=== PATIENT | female | born 1960 | race Caucasian/White ===

== ENCOUNTER 2017-04-23 01:37 | Inpatient (IN) | payer OTHER ==
[2017-04-23] VITALS (13 sets, daily range): BP systolic 106–142; BP diastolic 45–110; PULSE 97–113; RESP 17–27; TEMP 99; Ht 160 cm; Wt 69.5 kg
[~2017-04-23] VITALS: Ht 160 cm; Wt 69.5 kg
--- NOTE | 2017-04-23 02:02 | ERA ---
ER Documentation Chief Complaint Date/Time DATE: 04/23/17 TIME: 02:02 Chief Complaint cough x 4 days, sob today, sore throat x 1 day weakness today HPI The patient is a 56-year-old female, resenting to the ER because of cough for the last 4 days, sore throat and dyspnea for 1 day. She complains of generalized weakness, denies syncope, near syncope, neck pain, chest pain, abdominal pain, nausea, vomiting, dysuria, diarrhea. She does not smoke nor drink Past medical history: Diabetes mellitus Past surgical history: Cholecystectomy ROS All systems reviewed and are negative except as per history of present illness. Allergies Allergies: Coded Allergies: No Known Allergy (Unverified , 04/23/17) Physical Exam Vitals Vital Signs Date Time Temp Pulse Resp B/P Pulse Ox O2 Delivery O2 Flow Rate FiO2 04/23/17 01:41 97.4 101 20 139/77 100 Physical Exam Const: No acute distress. Dehydrated Head: Atraumatic. Eyes: Normal Conjunctiva. ENT: Normal External Ears, Nose and Mouth. Neck: Full range of motion. No meningismus. Resp: Clear to auscultation bilaterally. Cardio: Regular tachycardic Abd: Soft, non distended, normal bowel sounds, non tender. Skin: No petechiae or rashes. Back: No midline or flank tenderness. Ext: No cyanosis, or edema. Neur: Awake and alert. No focal deficit Psych: Normal Mood and Affect. Result Diagram: 04/23/17 0200 04/23/17 0200 Results 24 hrs Laboratory Tests Test 04/23/17 01:59 04/23/17 02:00 04/23/17 02:36 04/23/17 02:40 Bedside Glucose 288mg/dL White Blood Count 22.810^3/ul Red Blood Count 5.0810^6/ul Hemoglobin 15.7g/dl Hematocrit 49.8% Mean Corpuscular Volume 98.0fl Mean Corpuscular Hemoglobin 30.9pg Mean Corpuscular Hemoglobin Concent 31.5g/dl Red Cell Distribution Width 13.0% Platelet Count 94453^3/UL Mean Platelet Volume 11.4fl Neutrophils % 72.0% Band Neutrophils % 2.0% Lymphocytes % 13.0% Monocytes % 11.0% Myelocytes % 2.0% Neutrophils # 16.410^3/ul Lymphocytes # 3.010^3/ul Monocytes # 2.510^3/ul Myelocytes # 0.5 Differential Comment MANUAL DIFF Platelet Estimate PLT APPEAR ADEQUATE Anisocytosis 1+ Ovalocytes FEW Sodium Level 145mmol/L Potassium Level 5.0mmol/L Chloride Level 112mmol/L Carbon Dioxide Level < 5mmol/L Anion Gap 33 Blood Urea Nitrogen 9mg/dl Creatinine 0.90mg/dl Glucose Level 333mg/dl Calcium Level 8.9mg/dl Phosphorus Level 6.0mg/dl Magnesium Level 2.6mg/dl Lactic Acid Level 2.5mmol/L Urine Color LT. YELLOW Urine Clarity CLEAR Urine pH 5.5 Urine Specific Bryant >=1.030 Urine Ketones 3+ Urine Nitrite NEGATIVE Urine Bilirubin NEGATIVE Urine Urobilinogen 0.2 E.U./dL Urine Leukocyte Esterase NEGATIVE Urine Microscopic RBC Pending Urine Microscopic WBC Pending Urine Hemoglobin 3+ Urine Glucose 0.5%% Urine Total Protein 1+ Test 04/23/17 02:48 04/23/17 02:50 04/23/17 03:43 04/23/17 03:50 Bedside Urine pH (LAB) 5.5 Bedside Urine Protein (LAB) 2+ Bedside Urine Glucose (UA) 0.50% Bedside Urine Ketones (LAB) 3+ Bedside Urine Blood 3+ Bedside Urine Nitrite (LAB) Negative Bedside Urine Leukocyte Esterase (L Negative Bedside Glucose 289mg/dL 258mg/dL Stool Occult Blood NEGATIVE Current Medications Medications (Trade) Dose Ordered Sig/Andrei Route PRN Reason Start Time Stop Time Status Last Admin Dose Admin Sodium Chloride (NS) 1,000 ml @ 1,000 mls/hr Q1H STAT IV 04/23/17 02:06 04/23/17 03:05 DC 04/23/17 02:12 Ondansetron HCl 4 mg 4 mg ONCE STAT IV 04/23/17 02:06 04/23/17 02:08 DC 04/23/17 02:14 Sodium Chloride 1,000 ml @ 1,000 mls/hr Q1H ONCE IV 04/23/17 02:30 04/23/17 03:29 DC 04/23/17 03:08 Insulin Human Regular/Sodium Chloride (Novolin-R/NS) 100 ml @ 0 mls/hr DKA PROTOCOL IV 04/23/17 02:30 04/23/17 02:54 Diagnostic Test (Pha) 1 ea 1 ea Q1H XX 04/23/17 02:30 04/23/17 03:50 Sodium Chloride 1,000 ml @ 1,000 mls/hr Q1H ONCE IV 04/23/17 04:00 04/23/17 04:59 Cancel Vancomycin HCl 250 ml @ 125 mls/hr ONCE IVPB 04/23/17 04:00 04/23/17 05:59 Piperacillin Sod/ Tazobactam Sod 100 ml @ 200 mls/hr ONCE ONCE IVPB 04/23/17 04:00 04/23/17 04:29 04/23/17 04:16 Dextrose/Sodium Chloride 1,000 ml @ 150 mls/hr Q6H40M ONCE IV 04/23/17 04:00 04/23/17 10:39 04/23/17 04:16 Sodium Chloride (NS) 2,150 ml @ 2,150 mls/hr BOLUS X1 ONCE IV 04/23/17 04:00 04/23/17 04:59 Procedures/[place] [id number] Radiology Main Line: [phone] DIAGNOSTIC IMAGING REPORT Patient: JENNIE DORSEY : 1960 Age: 56 Sex: F MR #: [id number] DOS: 04/23/17 0206 Ordering MD: MARIAN FORD MD Location: E/R Room/Bed: PROCEDURE: XR Chest. CLINICAL INDICATION: Chest pain and hyperglycemia TECHNIQUE: Portable single view of the chest COMPARISON: None. FINDINGS: Top normal heart size. Shallow lung inflation with slight bibasilar crowding. No definite acute infiltrate, pleural effusion, or overt congestive heart failure. No definite acute bony abnormality. IMPRESSION: Slight bibasilar crowding. No definite acute infiltrate. RPTAT: HLBE Physician Ziggy Date Time Electronically viewed and signed by Luba Bernstein Physician on 04/23/2017 03 :17 LE/ CC: MARIAN FORD MD EKG: Read by emergency physician Rate/Rhythm: Sinus tachycardia 105 beats/min QRS, ST, T-waves: No ST elevation, no T inversion, LAD Impression: Abnormal EKG MEDICAL MAKING DECISION: The patient is a 56-year-old female, presenting with acute DKA, acute severe sepsis, acute dehydration, acute hyperphosphatemia, acute hypermagnesemia. She was treated with normal saline 30 mL/kg IV, empirically with vancomycin IV, Zosyn IV for acute severe sepsis. She was treated with insulin drip 0.1 U/kg/h, Accu-Cheks will be done every 1 hour After receiving normal saline 30 mL/kg IV, Accu-Chek was 258, her fluid then changed to D5 half-normal saline at 150 cc/h Admit MDM: Patient's infectious symptoms have not stabilized and the patient is at risk of rapid decompensation. The patient will be admitted for careful hydration, antibiotic therapy, and infectious source control. Severe Sepsis criteria: Infectious source: Unknown End organ damage indicated by: Lactate > 2.0 mmol/L Sepsis Management: Time of recognition of severe sepsis/septic shock:3 AM Within 3 hours of recognition: Blood cultures x 2 before broad-spectrum antibiotics: Yes 30 ml/kg NS bolus completed Initial lactate 2.5 Repeat lactate pending Critical Care: Critical care time 35 minutes Emergent fluid management while maintaining close respiratory support. Provision of immediate and broad-spectrum antibiotic therapy. Simultaneous assessment for possible sources in order to direct targeted therapy. Consideration for invasive and chemical support to prevent cardiopulmonary collapse. Septic Shock Assessment: Any lactic acid > 4.0 no Persistent hypotension (SBP < 90 or 40 mmHg drop, MAP < 65) despite 30 mL/kg IV fluid bolusno Departure Diagnosis: Primary Impression: DKA (diabetic ketoacidoses) Additional Impressions: Severe sepsis Hyperphosphatemia Hypermagnesemia Condition: Critical Comments I discussed the findings with the patient. I discussed the patient with the on- call hospitalist Dr. Lopez at 4 AM who was made aware of the lab, the treatment, the patient condition. The patient is admitted to ICU The patient's blood pressure was elevated (>120/80) but appears stable without evidence of hypertension emergency or urgency. The patient was counseled about the risks of hypertension and urged to pursue outpatient monitoring and therapy within a week with their primary care physician. MARIAN FORD MD Apr 23, 2017 02:02
[2017-04-23] MEDS ORDERED: SOD CHLORIDE 0.9% 1,000 ML IV STA (02:06)
[2017-04-23] MEDS ORDERED: ONDANSETRON 4 MG INJ IV STA (02:06)
[2017-04-23] MEDS ORDERED: SOD CHLORIDE 0.9% 1,000 ML IV ONE ×2 (02:30→04:00)
[2017-04-23] MEDS ORDERED: INSULIN HUMAN REGULAR 100 UNIT in SOD CHLORIDE 0.9% 99 ML IV SCH ×2 (02:30→05:00)
[2017-04-23 02:36] LABS: ADD SCAN DIFF NO
[2017-04-23 02:38] LABS: ABNORMAL IP MESSAGE 1; HEMATOCRIT 49.8 % (37.0-47.0); HEMOGLOBIN 15.7 g/dl (12.0-16.0); MEAN CORPUSCULAR HEMOGLOBIN 30.9 pg (29.0-33.0); MEAN CORPUSCULAR HGB CONC 31.5 g/dl (32.0-37.0); MEAN PLATELET VOLUME 11.4 fl (7.4-10.4); PLATELET COUNT 510 10^3/UL (140-415); RED BLOOD COUNT 5.08 10^6/ul (4.20-5.40); WHITE BLOOD COUNT 22.8 10^3/ul (4.8-10.8)
[2017-04-23 02:46] LABS: URINE BLOOD (Dip) POC 3+ (NEGATIVE)
[2017-04-23 03:01] LABS: BLOOD UREA NITROGEN 9 mg/dl (7-20); CALCIUM 8.9 mg/dl (8.4-10.2); GLUCOSE 333 mg/dl (70-220); MAGNESIUM 2.6 mg/dl (1.7-2.5); SODIUM 145 mmol/L (135-144)
[2017-04-23] MEDS: ACCU-CHEK XX SCH ×15 (03:12→23:30)
[2017-04-23 03:16] LABS: ANION GAP 33 (8-16); CHLORIDE 112 mmol/L (97-110)
--- NOTE | 2017-04-23 03:17 | RADRPT ---
PROCEDURE: XR Chest. CLINICAL INDICATION: Chest pain and hyperglycemia TECHNIQUE: Portable single view of the chest COMPARISON: None. FINDINGS: Top normal heart size. Shallow lung inflation with slight bibasilar crowding. No definite acute in filtrate, pleural effusion, or overt congestive heart failure. No definite acute bony abnormality. IMPRESSION: Slight bibasilar crowding. No definite acute infiltrate. RPTAT: HLBE Luba Bernstein Physician Date Time Electronically viewed and signed by Luba Bernstein, Physician on 04/23/2017 03:17 LE/
[2017-04-23 03:18] LABS: CARBON DIOXIDE < 5 mmol/L (21-31)
[2017-04-23 03:43] LABS: ADD UMIC YES; URINE BILIRUBIN (Dip) NEGATIVE (NEGATIVE); URINE BLOOD (Dip) 3+ (NEGATIVE); URINE COLOR LT. YELLOW (YELLOW); URINE KETONES (Dip) 3+ (NEGATIVE); URINE LEUKOCYTE ESTERASE (Dip) NEGATIVE (NEGATIVE); URINE NITRITE (Dip) NEGATIVE (NEGATIVE); URINE TOTAL PROTEIN (Dip) 1+ (NEGATIVE); URINE UROBILINOGEN (Dip) 0.2 E.U./dL (0.1-1.0)
[2017-04-23] MEDS ORDERED: DEXTROSE 5%-0.45% NACL 1,000 ML IV ONE (04:00)
[2017-04-23] MEDS ORDERED: SOD CHLORIDE 0.9% IV ONE (04:00)
[2017-04-23] MEDS ORDERED: PIPER-TAZO 3.375 GM IV (PMX) 100 ML IVPB ONE (04:00)
[2017-04-23] MEDS ORDERED: VANCOMYCIN 1 GM (PMX) 250 ML IVPB SCH (04:00)
[2017-04-23 04:06] LABS: MONOCYTE # 2.5 10^3/ul (0.3-0.9); MYELOCYTES # 0.5; NEUTROPHIL # 16.4 10^3/ul (1.6-7.5)
[2017-04-23 04:08] LABS: ANISOCYTOSIS 1+
[2017-04-23 04:09] LABS: BURR CELLS FEW; OVALOCYTES FEW
[2017-04-23 04:11] LABS: PLATELET ESTIMATE PLT APPEAR ADEQUATE
[2017-04-23 04:31] LABS: BACTERIA,URINE FEW; SQUAMOUS EPITHELIAL CELL,UR FEW
[2017-04-23] MEDS ORDERED: SOD CHLORIDE 0.9% 1,000 ML IV SCH (04:32)
[2017-04-23] MEDS ORDERED: EMPA25TA PO (04:44)
[2017-04-23] MEDS ORDERED: MTF1000T PO (04:44)
[2017-04-23] MEDS ORDERED: BENA10TA48 PO (04:44)
[2017-04-23] MEDS ORDERED: LORAZEPAM 2 MG INJ IV PRN (05:00)
[2017-04-23] MEDS ORDERED: ALBUTEROL/IPRATROPIUM (NEB) 3 ML AMP NEB PRN (05:00)
[2017-04-23] MEDS ORDERED: morphine 2 MG INJ IV PRN (05:00)
[2017-04-23] MEDS ORDERED: ONDANSETRON 4 MG INJ IV PRN (05:00)
[2017-04-23] MEDS ORDERED: DEXTROSE 50% 50 ML SYRINGE IV PRN ×6 (05:00→17:00)
[2017-04-23] MEDS ORDERED: LACTATED RINGER'S 1,000 ML IV SCH (05:32)
--- NOTE | 2017-04-23 06:26 | HP ---
DATE OF ADMISSION: 04/23/2017 TIME SEEN: 4 a.m. CHIEF COMPLAINT: Shortness of breath, cough and generalized weakness. HISTORY OF PRESENT ILLNESS: The patient is a 56-year-old female with history of diabetes who presen miguel to the emergency department with the above stated chief complaint. She state the cough which stewart s been dry for the most part that started about 5 days ago and has been associated with shortness of breath. She also complains of sore throat as well as generalized weakness and fruity odor/taste in her mouth. When she presented to the ER, blood pressure was 139/77, heart rate 101, respiratory rate 20, temper ature 97.4, oxygen saturation 100% on room air. Laboratory value shows WBC of almost 23,000, platel et count 510, sodium 145, chloride 112. She is severely acidotic with a bicarb of less than 5 with initial point of care glucose of 333 on the BMP. Anion gap is 33 and urine shows 3+ ketones. She w as started on an insulin drip with the DKA protocol and IV fluid and currently awaiting admission to ICU. Denies fever, chills, chest pain. REVIEW OF SYSTEMS: A 12-point review of systems are negative except as in the HPI. PAST MEDICAL HISTORY: As per HPI. SOCIAL HISTORY: Denied a history of tobacco, alcohol or illicit drug use. ALLERGIES: NO KNOWN DRUG ALLERGIES. HOME MEDICATIONS: See reconciliation of the medications. PHYSICAL EXAMINATION: VITAL SIGNS: As mentioned in the HPI. GENERAL: The patient lying on the gurney looks sleepy but arousable. No acute distress. HEENT: No obvious head deformity with ____, atraumatic. Extraocular movements intact. Pupils are reactive to light. No scleral icterus. CARDIOVASCULAR: Tachycardic with regular rhythm. LUNGS: Clear. ABDOMEN: Soft, nondistended. No grimaces noted on palpation. There are positive bowel signs. LOWER EXTREMITIES: No edema. LABORATORY DATA: Pertinent positives as mentioned in the HPI. IMAGING: Chest x-ray shows slightly bibasilar crowding with no definite acute infiltrate. IMPRESSION 1. Diabetic ketoacidosis. 2. Severe anion gap metabolic acidosis, probably secondary to above. 3. Sepsis, as evidenced by leukocytosis and tachycardia, secondary to suspected URI. 4. Mild hypernatremia. PLAN: 1. Admit to ICU. 2. Continue insulin with DKA protocol. 3. Continue IV fluids. 4. Correct electrolytes as needed. 5. ABG actually is now available and it shows the patient has severe acidosis with a pH of 6.99, pC O2 of 8.8, pO2 of 133, bicarb of 2.1 with base excess -27 and I believe that this was done on room a ir. I will repeat her ABG at a later time. 6. We will place an endocrinology consult. 7. She will be placed on antibiotic and will follow up on the blood culture and urine culture resul ts. 8. The patient presented with sign of sepsis with severe leukocytosis and tachycardia and has URI s ymptoms with a cough, sore throat. If the patient continues to have sore throat and no other identi fied source of infection is found, then we might need to do a throat swab. 9. Will correlate the as needed. 10. Further workup ____ clinical course. 11. Total critical time is about 40 minutes. Dictated By: KENDRICK MURILLO/PINKY Conf#: [id number] DID#: [id number]
[2017-04-23] MEDS ORDERED: NS + KCL 20 MEQ 1,000 ML IV SCH (06:32)
[2017-04-23 06:57] LABS: BLOOD UREA NITROGEN 9 mg/dl (7-20); CALCIUM 7.1 mg/dl (8.4-10.2); CHLORIDE 118 mmol/L (97-110); CREATININE 0.69 mg/dl (0.44-1.00); PHOSPHORUS 3.4 mg/dl (2.5-4.9); POTASSIUM 3.7 mmol/L (3.5-5.1); SODIUM 145 mmol/L (135-144)
[2017-04-23 07:10] LABS: ANION GAP 26 (8-16)
[2017-04-23 07:11] LABS: CARBON DIOXIDE < 5 mmol/L (21-31)
[2017-04-23 07:12] LABS: GLUCOSE 422 mg/dl (70-220)
[2017-04-23 08:55] LABS: AADO2 Arterial 5.6 mmHg (7.0-24.0); Allen Test ACCEPTAB; Arterial Base Excess -27.2 mmol/L (-3.0-3); Arterial COHb 0.3 % (0.0-3.0); Arterial Fraction of Oxyhgb 96.5 % (93.0-99.0); Arterial HCO3 2.1 mmol/L (22.0-26.0); Arterial MetHb 0.6 % (0.0-1.5); Arterial Total Hemglobin 16.2 g/dl (12.0-18.0); MODE ROOM AIR
[2017-04-23] MEDS: SOD CHLORIDE 0.9% 1,000 ML IV SCH ×2 (11:12→12:35)
[2017-04-23] MEDS: CEFEPIME 1GM/50 ML (PMX) 50 ML IVPB SCH ×2 (11:18→21:05)
[2017-04-23 13:02] LABS: CALCIUM 7.2 mg/dl (8.4-10.2); CREATININE 0.55 mg/dl (0.44-1.00); POTASSIUM 4.4 mmol/L (3.5-5.1)
[2017-04-23] MEDS ORDERED: GLUCAGON 1 MG INJ IM PRN (14:00)
[2017-04-23] MEDS ORDERED: GLUCOSE GEL 15 GRAM TUBE PO PRN ×2 (14:00)
[2017-04-23] MEDS ORDERED: GLUCOSE GEL 15 GRAM TUBE BUCCAL PRN (14:00)
[2017-04-23 16:25] LABS: CALCIUM 7.6 mg/dl (8.4-10.2); CREATININE 0.61 mg/dl (0.44-1.00); POTASSIUM 4.1 mmol/L (3.5-5.1)
[2017-04-23] MEDS: DEXTROSE 5%-0.9% NACL 1,000 ML IV SCH (17:29)
[2017-04-23] MEDS: INSULIN HUMAN REGULAR 100 UNIT in SOD CHLORIDE 0.9% 99 ML IV SCH ×2 (17:35→22:09)
[2017-04-23] MEDS ORDERED: INSULIN ASPART [NOVOLOG] 3 ML PEN SC SCH ×2 (17:35)
--- NOTE | 2017-04-23 17:41 | CONS ---
DATE OF ADMISSION: 04/23/2017 DATE OF CONSULTATION: 04/23/2017 TYPE OF CONSULTATION: Infectious Disease. REASON FOR CONSULTATION: Antibiotic management. HISTORY OF PRESENT ILLNESS: Madeline Carmona is a 56-year-old female who was brought in with shortness of breath, cough and generalized weakness. Her past problems include adult-onset diabetes mellitus. She presented to the emergency room with shortness of breath, cough and generalized weakness. Her throat has been dry for about 5 days associated with this shortness of breath. She also complains of a sore throat. In the emergency room, her temperature was normal. She had 100% oxygenation on r oom air. White count was 22.8, H and H of 15.7 and 49.8, platelet count of 510,000. BUN and creat inine were 9/0.55 with an anion gap of 14, carbon dioxide was 9, so she had a significant metabolic acidosis. Urine showed 3+ ketones, 3+ urine blood, negative nitrite and leukocyte esterase. A chest x-ray showed slight bibasilar crowding, no definite acute infiltrate. The patient was start ed on insulin and also was started on cefepime. She received a dose of vancomycin and Zosyn to star t with, now is on cefepime. PAST MEDICAL HISTORY: Operations as outlined. FAMILY HISTORY: Noncontributory. SOCIAL HISTORY: She does not smoke, drink or abuse drugs. ALLERGIES: NONE TO PENICILLIN, SULFA OR FOODS. MEDICATIONS: Per chart. REVIEW OF SYSTEMS: As per HPI. PHYSICAL EXAMINATION: GENERAL: The patient is a well-developed, well-nourished female who is sleepy, but arousable, in no acute distress. Family is by her bedside. VITAL SIGNS: Stable. She is afebrile. SKIN: Without generalized rash. HEENT: Within normal limits. NECK: Supple. LYMPH NODES: None palpable. CHEST: Decreased breath sounds at the bases. HEART: Without murmur or gallop. ABDOMEN: Soft, nontender, without organosplenomegaly or masses. EXTREMITIES: Without cyanosis, clubbing, or edema. RECTAL AND GENITAL: Deferred. NEUROLOGIC: No focal neurological abnormalities. IMPRESSION AND PLAN: The patient presents now with diabetic ketoacidosis with an elevated white cou nt of 22.8. Her blood gas showed severe acidosis with pH of 6.99, pCO2 of 8.8, pO2 of 133, base exc ess of -27. She will get an endocrinology consult. We will continue her on cefepime. We will awai t her blood culture results, which were ordered. I will dictate my findings to the hospitalist. Dictated By: JUDE EDMONDS MD, JD/PINKY Conf#: [id number] DID#: [id number]
[2017-04-23 17:48] LABS: PHOSPHORUS 2.8 mg/dl (2.5-4.9)
[2017-04-23] MEDS ORDERED: INSULIN GLARGINE [LANtus] 3 ML PEN SC SCH (20:00)
[2017-04-23 20:49] LABS: CREATININE 0.68 mg/dl (0.44-1.00); POTASSIUM 3.6 mmol/L (3.5-5.1)
[2017-04-24] VITALS (23 sets, daily range): BP systolic 96–128; BP diastolic 49–72; PULSE 87–101; RESP 16–28
[2017-04-24] MEDS: ACCU-CHEK XX SCH ×7 (00:17→20:48)
[2017-04-24] MEDS: DEXTROSE 5%-0.9% NACL 1,000 ML IV SCH ×2 (00:17→07:17)
[2017-04-24 01:20] LABS: CALCIUM 7.8 mg/dl (8.4-10.2); CREATININE 0.54 mg/dl (0.44-1.00)
[2017-04-24] MEDS ORDERED: ACCU-CHEK XX SCH ×2 (02:00→06:00)
[2017-04-24] MEDS: POTASSIUM CHLORIDE 50 ML IVPB PRN ×8 (03:01→13:32)
[2017-04-24] MEDS ORDERED: INSULIN HUMAN REGULAR 100 UNIT in SOD CHLORIDE 0.9% 99 ML IV SCH (06:00)
[2017-04-24 07:02] LABS: ADD SCAN DIFF NO
[2017-04-24 07:07] LABS: ABNORMAL IP MESSAGE 1; BASOPHILS % 0.1 % (0.0-2.0); EOSINOPHILS % 0.1 % (0.0-7.0); HEMATOCRIT 35.7 % (37.0-47.0); LYMPHOCYTES # 1.7 10^3/ul (0.8-2.9); LYMPHOCYTES % 11.1 % (15.0-51.0); MEAN CORPUSCULAR HEMOGLOBIN 30.8 pg (29.0-33.0); MEAN CORPUSCULAR HGB CONC 33.6 g/dl (32.0-37.0); MEAN CORPUSCULAR VOLUME 91.8 fl (82.0-101.0); MEAN PLATELET VOLUME 10.6 fl (7.4-10.4); MONOCYTE # 1.5 10^3/ul (0.3-0.9); MONOCYTES % 10.3 % (0.0-11.0); NEUTROPHIL # 11.5 10^3/ul (1.6-7.5); NEUTROPHILS % 77.1 % (39.0-77.0); PLATELET COUNT 339 10^3/UL (140-415); RED BLOOD COUNT 3.89 10^6/ul (4.20-5.40); RED CELL DISTRIBUTION WIDTH 13.5 % (11.5-14.5); WHITE BLOOD COUNT 14.9 10^3/ul (4.8-10.8)
[2017-04-24 07:34] LABS: ALBUMIN 3.3 g/dl (3.3-4.9); ALBUMIN/GLOBULIN RATIO 1.65; BILIRUBIN,INDIRECT 0.1 mg/dl (0-1.1); BILIRUBIN,TOTAL 0.1 mg/dl (0.2-1.3); CALCIUM 7.7 mg/dl (8.4-10.2); CREATININE 0.56 mg/dl (0.44-1.00); PHOSPHORUS 1.4 mg/dl (2.5-4.9); TOTAL PROTEIN 5.3 g/dl (6.1-8.1)
[2017-04-24] MEDS ORDERED: INSULIN GLARGINE [LANtus] 3 ML PEN SC SCH ×2 (08:00→20:00)
[2017-04-24] MEDS: CEFEPIME 1GM/50 ML (PMX) 50 ML IVPB SCH ×2 (08:57→20:51)
[2017-04-24 10:22] LABS: CALCIUM 7.9 mg/dl (8.4-10.2); CREATININE 0.5 mg/dl (0.44-1.00); POTASSIUM 3.5 mmol/L (3.5-5.1)
[2017-04-24] MEDS: ACETAMINOPHEN 650MG/20.3ML CUP PO PRN ×2 (11:11→19:02)
[2017-04-24] MEDS: SOD CHLORIDE 0.9% 1,000 ML IV SCH (13:29)
[2017-04-24 13:30] LABS: CALCIUM 7.9 mg/dl (8.4-10.2); CREATININE 0.49 mg/dl (0.44-1.00)
[2017-04-24] MEDS ORDERED: POTASSIUM CHLORIDE (SR) 20 MEQ TAB PO STA (14:21)
[2017-04-24 14:48] LABS: MICROALBUMIN 13.2 mg/dL
[2017-04-24] MEDS ORDERED: DEXTROSE 50% 50 ML SYRINGE IV PRN ×2 (15:00)
[2017-04-24] MEDS ORDERED: GLUCOSE GEL 15 GRAM TUBE BUCCAL PRN (15:00)
[2017-04-24] MEDS ORDERED: GLUCAGON 1 MG INJ IM PRN (15:00)
[2017-04-24] MEDS ORDERED: GLUCOSE GEL 15 GRAM TUBE PO PRN ×2 (15:00)
--- NOTE | 2017-04-24 15:01 | PN ---
DATE: 04/24/2017 SUBJECTIVE: No acute changes. The patient is alert, looks comfortable. Denies pain. She is still on insulin drip. No fevers. VITAL SIGNS: Temperature 98.2, pulse rate 93, respirations 18, blood pressure 111/49, saturation 99 % on room air. LABORATORY DATA: WBC 14.9, platelets 339, neutrophils 77.1, no bands. BUN 5, creatinine 0.49. MICROBIOLOGY: Blood cultures remain negative. Urine culture came back as contaminant. Urinalysis was negative for nitrite and leukocyte esterase. DIAGNOSTICS: Chest x-ray on admission revealed no definite acute infiltrate. PHYSICAL EXAMINATION: GENERAL: Well-developed, well-nourished middle-aged white woman who is alert, in no distress. HEENT: Head atraumatic, normocephalic. Sclerae anicteric. Buccal mucosa pink. NECK: Supple. CHEST: Rise symmetrical. Breath sounds clear. HEART: S1, S2. ABDOMEN: Soft, bowel sounds present. EXTREMITIES: Without cyanosis or edema. ASSESSMENT: 1. Systemic inflammatory response syndrome secondary to #2. 2. Diabetic ketoacidosis with severe metabolic acidosis. 3. Diabetes mellitus. PLAN: The patient remains stable, overall improving. Continue present care. Repeat urine culture. Repeat chest x-ray. Await for endocrinology evaluation. Dictated By: ADDISON SHANKAR FAMILY LAW SPECIALIST for JUDE WRIGHT/PINKY Conf#: [id number] DID#: [id number]
--- NOTE | 2017-04-24 15:26 | RADRPT ---
PROCEDURE: XR Chest. CLINICAL INDICATION: 56-year-old female with clinical suspicion of pneumonia. TECHNIQUE: Single frontal view of the chest was obtained. COMPARISON: Chest x-ray 04/23/2017. FINDINGS: The soft tissues are normal. There are degenerative osteophytes in the thoracic spine. The heart, cardiomediastinal silhouette and hilar structures are normal. The pulmonary vasculature is normal. There is a left-sided aorta. The lungs are clear. The costophrenic angles are normal. IMPRESSION: 1. Spondylosis of the thoracic spine with no evidence of active cardiopulmonary disease. 2. No acute infiltrate is identified. RPTAT:AAJJ Physician Kalyan Date Time Electronically viewed and signed by Physician Kalyan on 04/24/2017 15:25 PARISA/
--- NOTE | 2017-04-24 15:57 | PN ---
Date/Time of Note Date/Time of Note DATE: 04/24/17 TIME: 15:54 Assessment/Plan VTE Prophylaxis VTE Prophylaxis Intervention: SCD's Lines/Catheters IV [facility] Peripheral IV Urinary Cath still in place: No Assessment/Plan Chief Complaint/Hosp Course Assessment and plan 1. DKA. Fuel Cell Designer was consulted. Off of insulin drip at this time. Continue basal and pre-meal insulin. 2. Sirs likely secondary to DKA. Stable at present will monitor for now. 3. Diabetes. Continue on insulin regimen. Of note A1c was noted to be at 12.1. diabetes educator was consulted to follow patient 4. Hypokalemia. Will replete and check level in a.m. Disposition and plan: Appears to be improving at present. Continue his regimen. Monitor for blood glucose stability. Discussed plan of care with Dr. Coppola Problems: Subjective 24 Hr Interval Summary Free Text/Dictation Comfortable at present. No apparent distress. Exam/Review of Systems Vital Signs Vitals Vital Signs Date Time Temp Pulse Resp B/P Pulse Ox O2 Delivery O2 Flow Rate FiO2 04/24/17 15:00 88 23 124/60 100 Room Air 04/24/17 11:00 98.2 04/24/17 01:43 21 Intake and Output 04/23/17 04/23/17 04/24/17 15:00 23:00 07:00 Intake Total 1440 ml 1167 ml Output Total 2000 ml 1600 ml 750 ml Balance -2000 ml -160 ml 417 ml Exam Constitutional: alert, oriented Psych: nl mood/affect Head: normocephalic Eyes: nl conjunctiva Neck: supple, No jvd Respiratory: clear to auscultation, normal air movement Cardiovascular: regular rate and rhythm Gastrointestinal: non-tender, soft Musculoskeletal: nl extremities to inspection Neurological: MONUMENT STONECUTTER II-XII intact, nl mental status, nl speech Skin: nl turgor Results Result Diagram: 04/24/17 0555 04/24/17 1104 Results 24 hrs Laboratory Tests Test 04/23/17 15:55 04/23/17 16:00 04/23/17 17:26 04/23/17 18:04 Sodium Level 143 Potassium Level 4.1 Chloride Level 120 H Carbon Dioxide Level 7 *L Anion Gap 20 H Blood Urea Nitrogen 8 Creatinine 0.61 Glucose Level 210 Calcium Level 7.6 L Fasting Glucose 201 #H Phosphorus Level 2.8 Bedside Glucose 240 H 216 Test 04/23/17 19:00 04/23/17 19:58 04/23/17 20:15 04/23/17 21:08 Bedside Glucose 231 H 172 155 Sodium Level 144 Potassium Level 3.6 Chloride Level 121 H Carbon Dioxide Level 7 *L Anion Gap 20 H Blood Urea Nitrogen 8 Creatinine 0.68 Glucose Level 199 Calcium Level 8.0 L Test 04/23/17 22:03 04/23/17 23:10 04/23/17 23:28 04/24/17 00:10 Bedside Glucose 142 114 100 Sodium Level 140 Potassium Level 3.0 L Chloride Level 122 H Carbon Dioxide Level 10 L Anion Gap 11 # Blood Urea Nitrogen 8 Creatinine 0.54 Glucose Level 115 # Calcium Level 7.8 L Test 04/24/17 00:17 04/24/17 01:05 04/24/17 02:04 04/24/17 03:08 Bedside Glucose 106 119 129 165 Test 04/24/17 04:12 04/24/17 05:06 04/24/17 05:50 04/24/17 05:55 Bedside Glucose 131 156 Sodium Level 143 Potassium Level 3.0 L Chloride Level 122 H Carbon Dioxide Level 12 L Anion Gap 12 Blood Urea Nitrogen 7 Creatinine 0.56 Glucose Level 143 Calcium Level 7.7 L Phosphorus Level 1.4 #L Total Bilirubin 0.1 L Direct Bilirubin 0.00 Indirect Bilirubin 0.1 Aspartate Amino Transf (AST/SGOT) 11 L Alanine Aminotransferase (ALT/SGPT) 25 Alkaline Phosphatase 45 Total Protein 5.3 L Albumin 3.3 Globulin 2.00 Albumin/Globulin Ratio 1.65 White Blood Count 14.9 #H Red Blood Count 3.89 #L Hemoglobin 12.0 # Hematocrit 35.7 #L Mean Corpuscular Volume 91.8 Mean Corpuscular Hemoglobin 30.8 Mean Corpuscular Hemoglobin Concent 33.6 Red Cell Distribution Width 13.5 Platelet Count 339 # Mean Platelet Volume 10.6 H Neutrophils % 77.1 H Lymphocytes % 11.1 L Monocytes % 10.3 Eosinophils % 0.1 Basophils % 0.1 Nucleated Red Blood Cells % 0.0 Neutrophils # 11.5 H Lymphocytes # 1.7 Monocytes # 1.5 H Eosinophils # 0.0 Basophils # 0.0 Nucleated Red Blood Cells # 0.0 Test 04/24/17 06:03 04/24/17 07:17 04/24/17 07:51 04/24/17 08:53 Bedside Glucose 142 158 159 190 Test 04/24/17 09:18 04/24/17 09:54 04/24/17 11:04 04/24/17 11:06 Sodium Level 142 142 Potassium Level 3.5 3.0 L Chloride Level 120 H 121 H Carbon Dioxide Level 12 L 13 L Anion Gap 14 11 Blood Urea Nitrogen 6 L 5 L Creatinine 0.50 0.49 Glucose Level 173 152 Calcium Level 7.9 L 7.9 L Bedside Glucose 167 158 Test 04/24/17 12:17 04/24/17 13:19 Bedside Glucose 216 139 Medications Medications Current Medications Ondansetron HCl (Zofran Inj) 4 mg Q6H PRN IV NAUSEA AND/OR VOMITING; Start 04/23 at 05:00 Acetaminophen (Tylenol Liquid) 650 mg Q6H PRN PO PAIN LEVEL 1-3 OR FEVER Last administered on 04/24/17 11:11; Admin Dose 650 MG; Start 04/23/17 at 05:00 Morphine Sulfate (morphine) 2 mg Q4H PRN IV PAIN LEVEL 7-10 Last administered on 04/23/17 05:32; Admin Dose 2 MG; Start 04/23/17 at 05:00 Lorazepam 1 mg 1 mg Q2H PRN IV ANXIETY; Start 04/23/17 at 05:00 Cefepime HCl (Maxipime 1gm/50 ml (Pmx)) 50 ml @ 100 mls/hr Q12 IVPB Last administered on 04/24/17 08:57; Admin Dose 100 MLS/HR; Start 04/23/17 at 09:00 Miscellaneous Information 1 ea 1 ea NOTE XX ; Start 04/23/17 at 14:00 Sodium Chloride (NS) 1,000 ml @ 75 mls/hr [id number] IV Last administered on 13:29; Admin Dose 75 MLS/HR; Start 04/24/17 at 13:30 Insulin Glargine (Lantus) 8 unit BID@08,20 SC ; Start 04/24/17 at 20:00 Diagnostic Test (Pha) (Accu-Chek) 1 ea 02 XX ; Start 04/25/17 at 02:00 Miscellaneous Information 1 ea NOTE XX ; Start 04/24/17 at 15:00 Glucose (Glutose) 15 gm Q15M PRN PO DECREASED GLUCOSE; Start 04/24/17 at 15:00 Glucose (Glutose) 22.5 gm Q15M PRN PO DECREASED GLUCOSE; Start 04/24/17 at 15:00 Dextrose (D50w Syringe) 25 ml Q15M PRN IV DECREASED GLUCOSE; Start 04/24/17 at 15:00 Dextrose (D50w Syringe) 50 ml Q15M PRN IV DECREASED GLUCOSE; Start 04/24/17 at 15:00 Glucagon (Glucagen) 1 mg Q15M PRN IM DECREASED GLUCOSE; Start 04/24/17 at 15:00 Glucose (Glutose) 15 gm Q15M PRN BUCCAL DECREASED GLUCOSE; Start 04/24/17 at 15: 00 CONY VAZQUEZ Apr 24, 2017 15:57
[2017-04-24 17:16] LABS: CALCIUM 7.9 mg/dl (8.4-10.2); CREATININE 0.46 mg/dl (0.44-1.00); POTASSIUM 3.5 mmol/L (3.5-5.1)
[2017-04-24] MEDS: INSULIN ASPART [NOVOLOG] 3 ML PEN SC SCH ×5 (17:30→20:49)
[2017-04-24 21:56] LABS: CALCIUM 8.1 mg/dl (8.4-10.2); CREATININE 0.48 mg/dl (0.44-1.00); POTASSIUM 3.2 mmol/L (3.5-5.1)
[2017-04-24] MEDS: ACETAMINOPHEN 325 MG TAB PO PRN (22:05)
[2017-04-24] MEDS: INSULIN GLARGINE [LANtus] 3 ML PEN SC SCH (22:07)
[2017-04-25] VITALS (8 sets, daily range): BP systolic 109–128; BP diastolic 59–71; PULSE 78–85; RESP 18–20
[2017-04-25 01:40] LABS: CALCIUM 7.8 mg/dl (8.4-10.2); CREATININE 0.44 mg/dl (0.44-1.00); POTASSIUM 4.6 mmol/L (3.5-5.1)
[2017-04-25] MEDS ORDERED: ACCU-CHEK XX SCH ×2 (02:00)
[2017-04-25] MEDS: SOD CHLORIDE 0.9% 1,000 ML IV SCH (03:33)
[2017-04-25] MEDS: INSULIN ASPART [NOVOLOG] 3 ML PEN SC SCH ×4 (07:55→12:08)
[2017-04-25 08:03] LABS: CALCIUM 7.8 mg/dl (8.4-10.2); CREATININE 0.45 mg/dl (0.44-1.00); POTASSIUM 3.1 mmol/L (3.5-5.1)
[2017-04-25] MEDS: CEFEPIME 1GM/50 ML (PMX) 50 ML IVPB SCH (08:18)
[2017-04-25] MEDS: INSULIN GLARGINE [LANtus] 3 ML PEN SC SCH (08:24)
[2017-04-25] MEDS: ACETAMINOPHEN 325 MG TAB PO PRN (08:31)
[2017-04-25] MEDS ORDERED: POTASSIUM CHLORIDE (SR) 20 MEQ TAB PO STA (09:12)
--- NOTE | 2017-04-25 09:12 | CONS ---
Date/Time of Note Date/Time of Note DATE: 04/25/17 TIME: 09:07 Assessment/Plan Assessment/Plan Problems: (1) Hypokalemia Status: Acute Comment: This is due to the fluid shifts and electrolyte shifts with correction of DKA. Will replete this. (2) MALGORZATA (latent autoimmune diabetes of adulthood), managed as type 1 Status: Chronic Comment: The tip off that she has pancreatic beta cell insufficiency as the weight loss of well over 60 pounds. This indicates that her pancreas is trying to keep up with her bodies needs and is just barely hanging on. When she got an infection and put her over the edge and through into DKA and her episode of DKA was rather severe. This is aggravated by the SGL T2 drug which altered her in 8 months metabolic compensatory features. She should no longer receive SGL T2 drugs. She has been counseled at length by the nurse informatics educator and by myself. She will be best treated with insulin and a basal bolus regimen for now. At some point we may add back in some medication such as metformin versus a GLP-1 versus a DPP 4 drug. At this time her blood sugar control is excellent and she is approaching a time where she can be discharged. Please note she will need to be followed up in my office in 2-3 weeks. If there is an insurance issue without I will be happy to see her without discharge on an individual basis. (3) DKA (diabetic ketoacidoses) Status: Acute Comment: Resolved Qualifiers: Qualified Code: E08.10 - Diabetic ketoacidosis without coma associated with diabetes mellitus due to underlying condition Consultation Date/Type/Reason Admit Date/Time Apr 23, 2017 at 04:32 Date of Consultation: Apr 24, 2017 Type of Consultation: Endocrinology Reason for Consultation Diabetes mellitus type 1 with DKA Referring Provider: ROMY ARIAS Hx of Present Illness 56-year-old Amharic female with a history of diabetes mellitus type 2. She had been maintained on metformin and last year had an SGOT to drug charges added to her regimen. She had not been doing home blood glucose monitoring and by her review of systems did not enjoy good blood sugar control. She developed a respiratory infection bronchitis has come to the hospital with rather significant diabetic ketoacidosis which is now been resolved. Please note that the bulk of her fluid replacement was done with normal saline which has given her a hyperchloremic metabolic acidosis. Constitutional: no complaints (Denies fevers chills or sweats) Eyes: visual change (Some blurring of vision) ENT: no complaints Respiratory: cough, shortness of breath (Resolving) Cardiovascular: no complaints Gastrointestinal: no complaints Genitourinary: no complaints Musculoskeletal: no complaints Psychological: nl mood/affect Past Medical History Medical History: diabetes, hypertension Past Surgical History Past Surgical Hx: noncontributory Family History Significant Family History: diabetes, hypertension Social History Alcohol Use: none Smoking Status: Never smoker Drug Use: none Exam/Review of Systems Vital Signs Vitals Vital Signs Date Time Temp Pulse Resp B/P Pulse Ox O2 Delivery O2 Flow Rate FiO2 04/25/17 08:35 78 04/25/17 07:26 98.3 18 126/71 96 04/24/17 17:00 Room Air 04/24/17 01:43 21 Intake and Output 04/24/17 04/24/17 04/25/17 15:00 23:00 07:00 Intake Total 1043.5 ml 820 ml 570 ml Output Total 1200 ml 600 ml Balance -156.5 ml 220 ml 570 ml Exam Constitutional: alert, oriented Head: atraumatic, normocephalic Eyes: EOMI, nl conjunctiva, nl lids, nl sclera Neck: non-tender, supple Respiratory: clear to auscultation, normal air movement Cardiovascular: nl pulses, regular rate and rhythm Gastrointestinal: nl liver, spleen, non-tender, soft Results Result Diagram: 04/24/17 0555 04/25/17 0626 Results 24 hrs Laboratory Tests Test 04/24/17 09:18 04/24/17 09:54 04/24/17 11:04 04/24/17 11:06 Sodium Level 142 142 Potassium Level 3.5 3.0 L Chloride Level 120 H 121 H Carbon Dioxide Level 12 L 13 L Anion Gap 14 11 Blood Urea Nitrogen 6 L 5 L Creatinine 0.50 0.49 Glucose Level 173 152 Calcium Level 7.9 L 7.9 L Bedside Glucose 167 158 Test 04/24/17 12:17 04/24/17 13:19 04/24/17 16:48 04/24/17 17:24 Bedside Glucose 216 139 103 Sodium Level 141 Potassium Level 3.5 Chloride Level 119 H Carbon Dioxide Level 14 L Anion Gap 12 Blood Urea Nitrogen 4 L Creatinine 0.46 Glucose Level 104 # Calcium Level 7.9 L Test 04/24/17 20:01 04/24/17 21:26 04/25/17 01:10 04/25/17 01:27 Bedside Glucose 172 143 Sodium Level 137 135 Potassium Level 3.2 L 4.6 Chloride Level 115 H 115 H Carbon Dioxide Level 15 L 15 L Anion Gap 10 10 Blood Urea Nitrogen 4 L 4 L Creatinine 0.48 0.44 Glucose Level 184 130 # Calcium Level 8.1 L 7.8 L Test 04/25/17 06:26 04/25/17 08:08 Sodium Level 136 Potassium Level 3.1 L Chloride Level 112 H Carbon Dioxide Level 18 L Anion Gap 9 Blood Urea Nitrogen 3 L Creatinine 0.45 Glucose Level 108 Calcium Level 7.8 L Bedside Glucose 128 Medications Medications Current Medications Ondansetron HCl (Zofran Inj) 4 mg Q6H PRN IV NAUSEA AND/OR VOMITING; Start 04/23 at 05:00 Morphine Sulfate (morphine) 2 mg Q4H PRN IV PAIN LEVEL 7-10 Last administered on 04/23/17 05:32; Admin Dose 2 MG; Start 04/23/17 at 05:00 Lorazepam 1 mg 1 mg Q2H PRN IV ANXIETY; Start 04/23/17 at 05:00 Cefepime HCl (Maxipime 1gm/50 ml (Pmx)) 50 ml @ 100 mls/hr Q12 IVPB Last administered on 04/25/17 08:18; Admin Dose 100 MLS/HR; Start 04/23/17 at 09:00 Miscellaneous Information 1 ea 1 ea NOTE XX ; Start 04/23/17 at 14:00 Sodium Chloride (NS) 1,000 ml @ 75 mls/hr [id number] IV Last administered on 04/25 03:33; Admin Dose 75 MLS/HR; Start 04/24/17 at 13:30 Insulin Glargine (Lantus) 8 unit BID@08,20 SC Last administered on 04/25/17 08 :24; Admin Dose 8 UNIT; Start 04/24/17 at 20:00 Diagnostic Test (Pha) (Accu-Chek) 1 ea 02 XX Last administered on 04/25/17 01: 33; Admin Dose 1 EA; Start 04/25/17 at 02:00 Miscellaneous Information 1 ea NOTE XX ; Start 04/24/17 at 15:00 Glucose (Glutose) 15 gm Q15M PRN PO DECREASED GLUCOSE; Start 04/24/17 at 15:00 Glucose (Glutose) 22.5 gm Q15M PRN PO DECREASED GLUCOSE; Start 04/24/17 at 15:00 Dextrose (D50w Syringe) 25 ml Q15M PRN IV DECREASED GLUCOSE; Start 04/24/17 at 15:00 Dextrose (D50w Syringe) 50 ml Q15M PRN IV DECREASED GLUCOSE; Start 04/24/17 at 15:00 Glucagon (Glucagen) 1 mg Q15M PRN IM DECREASED GLUCOSE; Start 04/24/17 at 15:00 Glucose (Glutose) 15 gm Q15M PRN BUCCAL DECREASED GLUCOSE; Start 04/24/17 at 15: 00 Acetaminophen (Tylenol Tab) 650 mg Q6H PRN PO PAIN AND OR ELEVATED TEMP Last administered on 04/25/17 08:31; Admin Dose 650 MG; Start 04/24/17 at 19:30 EDWARD SCHNEIDER MD Apr 25, 2017 09:12
[2017-04-25] MEDS: ACCU-CHEK XX SCH ×2 (09:50→13:50)
[2017-04-25 10:20] LABS: CALCIUM 7.5 mg/dl (8.4-10.2); CREATININE 0.46 mg/dl (0.44-1.00)
[2017-04-25 10:24] LABS: POTASSIUM 2.8 mmol/L (3.5-5.1)
[2017-04-25] MEDS ORDERED: POTASSIUM CHLORIDE (SR) 20 MEQ TAB PO ONE (12:00)
[2017-04-25] MEDS ORDERED: LANT3I SC (12:04)
[2017-04-25] MEDS ORDERED: NOVO3I SC (12:04)
--- NOTE | 2017-04-25 12:05 | PDOCDIS ---
Discharge Instructions DIAGNOSIS Discharge Diagnosis: 1. DKA 2. uncontrolled diabetes CONDITION Patient Condition: Stable HOME CARE INSTRUCTIONS: Special Diet: carbohydrate controlled FOLLOW UP/APPOINTMENTS Appointments 1. Follow up with Dr. Jadiel Barnett in 2 weeks CONY VAZQUEZ Apr 25, 2017 12:05
[2017-04-25 14:10] LABS: CALCIUM 8.6 mg/dl (8.4-10.2); CREATININE 0.54 mg/dl (0.44-1.00)
--- NOTE | 2017-04-25 19:39 | CONS ---
Date/Time of Note Date/Time of Note DATE: 04/25/17 TIME: 19:37 Assessment/Plan Assessment/Plan Chief Complaint/Hosp Course SUBJECTIVE: No acute changes. The patient is alert, looks comfortable. Denies pain. No fevers. MICROBIOLOGY: Blood cultures remain negative. DIAGNOSTICS: Chest x-ray on admission revealed no definite acute infiltrate. PHYSICAL EXAMINATION: GENERAL: Well-developed, well-nourished middle-aged white woman who is alert, in no distress. HEENT: Head atraumatic, normocephalic. Sclerae anicteric. Buccal mucosa pink. NECK: Supple. CHEST: Rise symmetrical. Breath sounds clear. HEART: S1, S2. ABDOMEN: Soft, bowel sounds present. EXTREMITIES: Without cyanosis or edema. ASSESSMENT: 1. Systemic inflammatory response syndrome secondary to #2. 2. Diabetic ketoacidosis with severe metabolic acidosis. 3. Diabetes mellitus. PLAN: The patient remains stable, overall improving. Continue present care. Endocrinology rec-s [facility] staff/pt Problems: Consultation Date/Type/Reason Admit Date/Time Apr 23, 2017 at 04:32 Initial Consult Date 04/24/17 Type of Consultation: ID Referring Provider: ROMY ARIAS Exam/Review of Systems Vital Signs Vitals Vital Signs Date Time Temp Pulse Resp B/P Pulse Ox O2 Delivery O2 Flow Rate FiO2 04/25/17 12:11 78 04/25/17 11:13 98.5 18 109/59 18 04/24/17 17:00 Room Air 04/24/17 01:43 21 Intake and Output 04/24/17 04/24/17 04/25/17 15:00 23:00 07:00 Intake Total 1043.5 ml 820 ml 570 ml Output Total 1200 ml 600 ml Balance -156.5 ml 220 ml 570 ml Results Result Diagram: 04/24/17 0555 04/25/17 1315 Results 24 hrs Laboratory Tests Test 04/24/17 20:01 04/24/17 21:26 04/25/17 01:10 04/25/17 01:27 Bedside Glucose 172 143 Sodium Level 137 135 Potassium Level 3.2 L 4.6 Chloride Level 115 H 115 H Carbon Dioxide Level 15 L 15 L Anion Gap 10 10 Blood Urea Nitrogen 4 L 4 L Creatinine 0.48 0.44 Glucose Level 184 130 # Calcium Level 8.1 L 7.8 L Test 04/25/17 06:10 04/25/17 06:26 04/25/17 08:08 04/25/17 09:14 Magnesium Level 2.0 Sodium Level 136 131 L Potassium Level 3.1 L 2.8 *L Chloride Level 112 H 104 Carbon Dioxide Level 18 L 18 L Anion Gap 9 12 Blood Urea Nitrogen 3 L 3 L Creatinine 0.45 0.46 Glucose Level 108 368 #H Calcium Level 7.8 L 7.5 L Bedside Glucose 128 Test 04/25/17 09:52 04/25/17 11:56 04/25/17 13:15 Bedside Glucose 200 214 Sodium Level 136 Potassium Level 4.0 Chloride Level 108 Carbon Dioxide Level 20 L Anion Gap 12 Blood Urea Nitrogen 5 L Creatinine 0.54 Glucose Level 259 #H Calcium Level 8.6 ADDISON SHANKAR NP Apr 25, 2017 19:39
[2017-04-25] MEDS ORDERED: INSULIN GLARGINE [LANtus] 3 ML PEN SC SCH (21:00)
[2017-04-27 21:19] LABS: ISLET CELL ANTIBODY SCREEN NEGATIVE (NEGATIVE)
--- NOTE | 2017-04-28 16:02 | DS ---
DATE OF ADMISSION: 04/23/2017 DATE OF DISCHARGE: 04/25/2017 CONSULTANTS: 1. Dr. Corey Tolbert. 2. Dr. Jadiel Barnett. DISCHARGE DIAGNOSES: 1. Diabetic ketoacidosis. 2. Systemic inflammatory response syndrome secondary to diabetic ketoacidosis. 3. Diabetes. 4. Hypokalemia. HOSPITAL COURSE: This is a 56-year-old female with history of diabetes who came to [facility] due to reports of shortness of breath and generalized weakness. The patient did report having a cough for 5 days prior to admission and also sore throat, also generalized weakness. As s uch, she came to [facility]. On examination, she had a white count of 23,000 and a platelet count of 510, as well as clinical picture of DKA with an anion gap of 33. The patient wa s initially placed on insulin drip and she was seen by icu manager, who did help with insulin re gimen. She was eventually transitioned to basal insulin with premeal insulin. She was also seen by infectious disease physician initially due to suspect possible sepsis, but likely her elevation in white count was secondary to her DKA. During her course of stay, she did improve. She was seen by coding educator as well, and she, of note, had an A1c of 12.1. Her insulin was adjusted and she d id have better glucose control. She was advised to follow up with icu manager within a week. T he plan of care was discussed with patient, and patient did verbalize understanding. Of note, her s ymptoms have resolved and she did report better strength on the day of discharge. On the day of dis charge, the patient was in stable condition. DISCHARGE PHYSICAL EXAMINATION: Vital signs are stable. CONDITION: Stable. DISCHARGE PLAN: 1. Diet is carbohydrate controlled. 2. Patient to follow up with Dr. Jadiel Barnett in 2 weeks. DISCHARGE MEDICATIONS: 1. Insulin NovoLog 40 units subcutaneous with meals. 2. Lantus 6 units subcutaneous at bedtime. 3. Benazepril 10 mg p.o. every day. DISCHARGE PROCESS TIME: 40 minutes. Discussed plan of care with Dr. Coppola. Dictated By: CONY VAZQUEZ WEIGHT CONTROL LECTURER for ROMY HURST/PINKY Conf#: [id number] [facility]#: [id number]
== END 2017-04-25 15:28 | disposition home or self-care (01) | DRG 638 ==
LOC: E/R 01:37 → ICU 04:32 → TEL 04-24 17:47
PROVIDERS: ADMIT Internal Medicine; ATTEND Internal Medicine
DX: E10.10 Type 1 diabetes mellitus with ketoacidosis without coma (principal); E87.2 Acidosis; E87.0 Hyperosmolality and hypernatremia; R65.10 Systemic inflammatory response syndrome (SIRS) of non-infectious origin without acute organ dysfunction; E87.6 Hypokalemia
CPT/HCPCS: 36415; 36600; 71010; 80048; 80053; 81001; 81003; 82043; 82270; 82378; 82803; 82947; 82962; 83036; 83605; 83735; 84100; 84681; 85025; 86341; 87040; 87081; 87086; 87430; 93005; 96365; 96366; 96375; J0692; J1815; J2270; J2405; J2543; J3370; J3480; J7030; J7042; J7120